=== PATIENT | male | born 1975 | race Caucasian/White ===

== ENCOUNTER 2020-08-21 08:16 | Emergency (ER) | payer OTHER ==
--- NOTE | 2020-08-21 08:31 | EDM.PDOC ---
"ED HPI GENERAL MEDICAL PROBLEM - General Chief Complaint: Head Injury Stated Complaint: HEAD INJURY Time Seen by Provider: 08/21/20 08:30 Source of Information: Reports: Patient, EMS, RN, RN Notes Reviewed History Limitations: Reports: No Limitations - History of Present Illness INITIAL COMMENTS - FREE TEXT/NARRATIVE: Pt arrives to ER from [facility] by ambulance with report that pt ran into a wall late last night while doing laundry and struck his forehead. He admits to a small laceration at the forehead, some mild confusion, and nausea. Pt denies LOC, neck pain, or any other injury. Pt states his Tetanus is up to date. He reports Hx of several head injuries, one severe enough to be diagnosed as a traumatic brain injury. Onset: Sudden Onset Date: 08/21/20 Onset Time: 00:30 Location: Reports: Head Quality: Reports: Ache Severity: Mild Improves with: Reports: None Worsens with: Reports: None Associated Symptoms: Reports: No Other Symptoms - Related Data Allergies Allergy/AdvReac Type Severity Reaction Status Date / Time naproxen Allergy Rash Verified 08/21/20 08:24 Home Meds: Home Meds Melatonin 10 mg PO BEDTIME 08/21/20 [History] Omeprazole 20 mg PO BIDAC 08/21/20 [History] atorvaSTATin [Lipitor] 10 mg PO BEDTIME 08/21/20 [History] buPROPion HCL [Wellbutrin Xl] 150 mg PO DAILY 08/21/20 [History] Past Medical History HEENT History: Reports: Impaired Vision (Wears glasses) Cardiovascular History: Reports: High Cholesterol Gastrointestinal History: Reports: GERD Neurological History: Reports: Brain Injury, Concussion, Head Trauma Psychiatric History: Reports: Depression Social & Family History - Family History Family Medical History: No Pertinent Family History - Tobacco Use Tobacco Use Status *Q: Current Every Day Tobacco User Tobacco Use Within Last Twelve Months: Cigarettes - Living Situation & Occupation Living situation: Reports: Occupation: Employed ED ROS GENERAL - Review of Systems Review Of Systems: Comprehensive ROS is negative, except as noted in HPI. ED EXAM, HEAD INJURY - Physical Exam Exam: See Below Exam Limited By: No Limitations General Appearance: Alert, WD/WN, No Apparent Distress Head: Normocephalic, Other (1.25cm superficial laceration, dried over and closed, no sign of infection). No: Scalp Tenderness, Active Bleeding, Raccoon Eyes Nexus Criteria: No: Posterior, Midline Cervical Tenderness, Evidence of Intoxication, Altered Level of Consciousness, Focal Neurological Deficit, Painful Distraction Injuries Eyes: Bilateral Eye: EOMI, Normal Inspection, PERRL Ears: Normal External Exam, Normal Canal, Hearing Grossly Normal, Normal TMs, Other (No hemotympanum B/L) Nose: Normal Inspection, Normal Mucousa, No Blood Throat/Mouth: Normal Inspection, Normal Lips, Normal Teeth, Normal Gums, Normal Oropharynx, Normal Voice, No Airway Compromise Neck: Non-Tender, Full Range of Motion, Normal Alignment, Normal Inspection. No: Painful Range of Motion, Spinous Processes Tender Respiratory: No Respiratory Distress, Lungs Clear, Normal Breath Sounds, No Accessory Muscle Use, Chest Non-Tender Cardiovascular: Normal Peripheral Pulses, Regular Rate, Rhythm, No Edema, No Gallop, No JVD, No Murmur, No Rub Back Exam: Normal Inspection Extremities: Normal Inspection Neurologic: cloth examiner II-XII nml As Tested, No Motor/Sensory Deficits, Alert, Normal Mood/Affect, Oriented x 3, Other (Some confusion about the events following the head injury) Skin: Normal Color, Warm/Dry - Joselo Coma Score Best Eye Response (Joselo): (4) Open Spontaneously Best Verbal Response ([place]): (5) Oriented Best Motor Response ([place]): (6) Obeys Commands Joselo Total: 15 Course - Vital Signs Last Recorded V/S: Last Vital Signs Temp 97.6 F 08/21/20 08:26 Pulse 96 08/21/20 08:26 Resp 16 08/21/20 08:26 BP 140/78 08/21/20 08:26 Pulse Ox 98 08/21/20 08:26 - Radiology Interpretation Free Text/Narrative:: [facility] [place] [facility] Final Radiology Report Call: [phone] assistance Online chat: [email or web address] Name: LILI AMARAL Age: 45Years M Date: 08/21/2020 SSN: -- : [id number] Study: CT HEAD WO CONT Requesting Physician: RHIANNON CUNNINGHAM Images: 152 Addl Studies: Provided Clinical History: Head injury, Hx of remote TBI Contrast: Without Contrast Medium: Contrast Amount: Contrast Method: Page 1 of 2 PROCEDURE INFORMATION: Exam: CT Head Without Contrast Exam date and time: 08/21/2020 8:39 AM Age: 45 years old Clinical indication: Injury or trauma; Other: Hit head against a wall; Blunt trauma (contusions or hematomas); Consciousness not specified; Additional info: Head injury, HX of remote tbi TECHNIQUE: Imaging protocol: Computed tomography of the head without contrast. Radiation optimization: All CT scans at this facility use at least one of these dose optimization techniques: automated exposure control; mA and/or kV adjustment per patient size (includes targeted exams where dose is matched to clinical indication); or iterative reconstruction. COMPARISON: No relevant prior studies available. FINDINGS: Brain: Normal. No hemorrhage. Unremarkable white matter. No mass effect. Cerebral ventricles: No ventriculomegaly. Bones/joints: Unremarkable. No acute fracture. Paranasal sinuses: Moderate mucoperiosteal thickening of the paranasal sinuses. Mastoid air cells: Visualized mastoid air cells are well aerated. Soft tissues: Mild left frontal soft tissue swelling. IMPRESSION: 1. Mild left frontal soft tissue swelling but no evidence of acute intracranial pathology. 2. Moderate mucoperiosteal thickening of the paranasal sinuses. Thank you for allowing us to participate in the care of your patient. MUNIR LILI | Final Radiology Report CONFIDENTIALITY STATEMENT This report is intended only for use by the referring physician, and only in accordance with law. If you received this in error, call [phone]. Page 2 of 2 Dictated and Authenticated by: Linda Beltre MD 08/21/2020 8:59 AM Central Time ([place] & [place]) - Re-Assessments/Exams Free Text/Narrative Re-Assessment/Exam: 08/21/20 08:55 No procedural wound care by physician, wound to old to suture. Departure - Departure Time of Disposition: 09:02 Disposition: Home, Self-Care 01 Condition: Good Clinical Impression: Concussion with no loss of consciousness Forehead laceration Qualifiers: Encounter type: initial encounter Qualified Code(s): S01.81XA - Laceration without foreign body of other part of head, initial encounter - Discharge Information *PRESCRIPTION DRUG MONITORING PROGRAM REVIEWED*: Not Applicable *COPY OF PRESCRIPTION DRUG MONITORING REPORT IN PATIENT REED: Not Applicable Instructions: Concussion, Adult, [id number], Nonsutured Laceration Care Forms: ED Department Discharge Additional Instructions: Head injury precautions for 14 days: No contact sports, rough activities, physical exertion, prolonged concentration or staring at computer/TV/phone screens, consumption of alcohol, or any new medications or supplements which may cause drowsiness. (Melatonin is okay to use if needed). Follow up in clinic with your primary doctor or at sick call in 3 to 5 days for recheck. Sepsis Event Note (ED) - Evaluation Sepsis Screening Result: No Definite Risk - Focused Exam Vital Signs: Vital Signs Temp Pulse Resp BP Pulse Ox 08/21/20 08:26 97.6 F 96 16 140/78 98"
[2020-08-21] MEDS ORDERED: Bacitracin Oint 1 GM U/D Packet TOP ONE (08:44)
--- NOTE | 2020-08-21 08:59 | CT ---
PROCEDURE INFORMATION: Exam: CT Head Without Contrast Exam date and time: 08/21/2020 8:39 AM Age: 45 years old Clinical indication: Injury or trauma; Other: Hit head against a wall; Blunt trauma (contusions or hematomas); Consciousness not specified; Additional info: Head injury, HX of remote tbi TECHNIQUE: Imaging protocol: Computed tomography of the head without contrast. Radiation optimization: All CT scans at this facility use at least one of these dose optimization techniques: automated exposure control; mA and/or kV adjustment per patient size (includes targeted exams where dose is matched to clinical indication); or iterative reconstruction. COMPARISON: No relevant prior studies available. FINDINGS: Brain: Normal. No hemorrhage. Unremarkable white matter. No mass effect. Cerebral ventricles: No ventriculomegaly. Bones/joints: Unremarkable. No acute fracture. Paranasal sinuses: Moderate mucoperiosteal thickening of the paranasal sinuses. Mastoid air cells: Visualized mastoid air cells are well aerated. Soft tissues: Mild left frontal soft tissue swelling. IMPRESSION: 1. Mild left frontal soft tissue swelling but no evidence of acute intracranial pathology. 2. Moderate mucoperiosteal thickening of the paranasal sinuses.
== END 2020-08-21 09:11 | disposition home or self-care (01) ==
LOC: DL.ED 08:16
DX: S06.0X0A Concussion without loss of consciousness, initial encounter (principal); S01.81XA Laceration without foreign body of other part of head, initial encounter; E78.00 Pure hypercholesterolemia, unspecified; K21.9 Gastro-esophageal reflux disease without esophagitis; Z72.0 Tobacco use; Z88.8 Allergy status to other drugs, medicaments and biological substances; W22.01XA Walked into wall, initial encounter; Y93.E2 Activity, laundry
CPT/HCPCS: 70450; 99283; 99284-25